=== PATIENT | female | born 1960 | race Caucasian/White ===

== ENCOUNTER 2021-01-28 16:33 | Emergency (ER) | payer OTHER ==
[~2021-01-28] VITALS: Ht 170.2 cm; Wt 116.6 kg
[2021-01-28 17:21] LABS: ABSOLUTE NEUTROPHILS 6.3 thou/uL (1.4-8.2); BASOPHILS 0.9 % (0.0-2.0); EOSINOPHILS 3.3 % (0.0-3.0); HEMOGLOBIN 13.8 gm/dL (12.0-15.0); MCH 31.4 pg (26.0-34.0); MCHC 34.7 g/dL (28.0-37.0); MCV 90.7 fL (80.0-100.0); MONOCYTES 4.9 % (1.0-8.0); PLATELET COUNT 147 thou/uL (150-400); POLYS 64.9 % (36.0-66.0); RBC 4.41 mil/uL (4.20-5.00); RDW 13.9 % (10.5-14.5); WBC 9.7 thou/uL (4.0-11.0)
[2021-01-28 17:35] LABS: CALCIUM 9.9 mg/dL (8.5-10.1); CREATININE 1.2 mg/dL (0.6-1.0)
[2021-01-28 17:40] LABS: ALBUMIN 3.7 g/dL (3.4-5.0); TOTAL BILIRUBIN 0.6 mg/dL (0.2-1.0); TOTAL PROTEIN 8.5 g/dL (6.4-8.2)
[2021-01-28 18:06] LABS: URINE BILIRUBIN 1+ (Negative); URINE BLOOD NEGATIVE (Negative); URINE CLARITY CLEAR; URINE COLOR YELLOW; URINE GLUCOSE-RANDOM* TRACE (Negative); URINE KETONES 1+ (Negative); URINE NITRITE-REFLEX NEGATIVE (Negative); URINE PROTEIN (DIPSTICK) 2+ (Negative); URINE SPECIFIC GRAVITY >= 1.030 (1.005-1.035)
[2021-01-28 18:09] LABS: URINE LEUKOCYTES-REFLEX 1+ (Negative)
[2021-01-28 18:26] LABS: ICTOTEST (BILI CONFIRMATORY) Negative (Negative)
[2021-01-28 18:29] LABS: CASTS None Seen /LPF (None Seen); SQUAMOUS >10 Many /LPF (0-3); URINE WBC-REFLEX 6-15 Few /HPF (0-5)
[2021-01-28 18:30] LABS: BACTERIA-REFLEX 1-9 Few /HPF (None Seen); CRYSTALS None Seen /LPF (None Seen); URINE RBC 3-10 Few /HPF (NONE SEEN)
[2021-01-28] MEDS ORDERED: BACTRIM DS TAB1 EAC1 PO ×2 (19:18→19:21)
[2021-01-28 19:40] VITALS: BP 152/74
[2021-01-28] MEDS ORDERED: CEPHALEXIN500 MG PO (19:56)
== END 2021-01-28 20:12 | disposition home or self-care (01) ==
LOC: ER 16:33
PROVIDERS: Nurse Practitioner Family
DX: L02.214 Cutaneous abscess of groin (principal); Z20.822 Contact with and (suspected) exposure to COVID-19; N39.0 Urinary tract infection, site not specified; E11.9 Type 2 diabetes mellitus without complications; Z88.8 Allergy status to other drugs, medicaments and biological substances